=== PATIENT | female | born 1975 | race Caucasian/White ===

== ENCOUNTER 2019-10-23 11:26 | Emergency (ER) | payer OTHER ==
[~2019-10-23] VITALS: Ht 167.7 cm; Wt 100.0 kg
--- NOTE | 2019-10-23 11:43 | ED General ---
General Stated Complaint: BP 200/150 Source of Information: Patient History of Present Illness Date Seen by Provider: Oct 23, 2019 Time Seen by Provider: 11:30 Initial Comments 44-year-old female presents with sudden onset of feeling shaky while at work and then her blood pressure checked and it was very high. Presents to the ER with same complaints, her hand shaking uncontrollably and very anxious. Concerned she may be having a heart attack or stroke. Allergies and Home Medications Allergies Coded Allergies: acyclovir (Unverified Adverse Reaction, Mild, cold sweats, 10/23/19) Patient Home Medication List Home Medication List Reviewed: Yes Review of Systems Review of Systems Constitutional: No dizziness, No fever, No malaise, No weakness Respiratory: No cough, No short of breath Cardiovascular: No chest pain, No edema; palpitations; No syncope Gastrointestinal: No abdominal pain, No constipation, No vomiting Musculoskeletal: No back pain, No joint pain Skin: No change in color, No lesions, No rash Psychiatric/Neurological: Anxiety; Denies Emotional Problems, Denies Headache, Denies Numbness, Denies Paresthesia, Denies Pre-Existing Deficit, Denies Seizure; Tremors (of hands) Past Xzlialy-Yeunug-Vhlqjw Hx Past Med/Social Hx: Reviewed Nursing Past Med/Soc Hx Patient Social History Recent Foreign Travel: No Contact w/Someone Who Travel: No Physical Exam Vital Signs Vital Signs - First Documented 10/23/19 11:30 Temp 36.4 Pulse 120 Resp 22 B/P (MAP) 185/113 (137) Pulse Ox 96 O2 Delivery Room Air Capillary Refill : Height, Weight, BMI Height: '" Weight: lbs. oz. kg; BMI Method: General Appearance: Anxious (trembling and shaking of b/l hands. Stops w volitional movement.) HEENT: PERRL/EOMI, Normal ENT Inspection Neck: Non Tender, Supple Respiratory: Chest Non Tender, Lungs Clear Cardiovascular: No Edema, No Gallop, No JVD, No Murmur, Normal Peripheral Pulses, Tachycardia (sinus tach.....130's on arrival) Gastrointestinal: Non Tender, Soft; No Distended, No Guarding, No Tenderness Back: Normal Inspection, No CVA Tenderness Extremity: Normal Capillary Refill, Normal Inspection, Non Tender, No Calf Tenderness Neurologic/Psychiatric: Alert, Oriented x3, No Motor/Sensory Deficits, Other (very anxious) Progress/Results/Core Measures Suspected Sepsis SIRS Temperature: Pulse: Respiratory Rate: Laboratory Tests 10/23/19 11:40: White Blood Count 9.4 Blood Pressure / Mean: Laboratory Tests 10/23/19 11:40: Creatinine 0.91, Platelet Count 343, Total Bilirubin 0.3 Results/Orders Lab Results Laboratory Tests Test 10/23/19 11:40 10/23/19 12:14 Range/Units White Blood Count 9.4 4.3-11.0 10^3/uL Red Blood Count 5.05 4.35-5.85 10^6/uL Hemoglobin 15.2 11.5-16.0 G/DL Hematocrit 44 35-52 % Mean Corpuscular Volume 87 80-99 FL Mean Corpuscular Hemoglobin 30 25-34 PG Mean Corpuscular Hemoglobin Concent 35 32-36 G/DL Red Cell Distribution Width 13.5 10.0-14.5 % Platelet Count 343 130-400 10^3/uL Mean Platelet Volume 9.6 7.4-10.4 FL Neutrophils (%) (Auto) 62 42-75 % Lymphocytes (%) (Auto) 31 12-44 % Monocytes (%) (Auto) 7 0-12 % Eosinophils (%) (Auto) 0 0-10 % Basophils (%) (Auto) 0 0-10 % Neutrophils # (Auto) 5.8 1.8-7.8 X 10^3 Lymphocytes # (Auto) 2.9 1.0-4.0 X 10^3 Monocytes # (Auto) 0.7 0.0-1.0 X 10^3 Eosinophils # (Auto) 0.0 0.0-0.3 10^3/uL Basophils # (Auto) 0.0 0.0-0.1 10^3/uL Sodium Level 139 135-145 MMOL/L Potassium Level 3.9 3.6-5.0 MMOL/L Chloride Level 102 98-107 MMOL/L Carbon Dioxide Level 23 21-32 MMOL/L Anion Gap 14 5-14 MMOL/L Blood Urea Nitrogen 13 7-18 MG/DL Creatinine 0.91 0.60-1.30 MG/DL Estimat Glomerular Filtration Rate > 60 BUN/Creatinine Ratio 14 Glucose Level 121 H 70-105 MG/DL Calcium Level 9.2 8.5-10.1 MG/DL Corrected Calcium 8.9 8.5-10.1 MG/DL Total Bilirubin 0.3 0.1-1.0 MG/DL Aspartate Amino Transf (AST/SGOT) 22 5-34 U/L Alanine Aminotransferase (ALT/SGPT) 26 0-55 U/L Alkaline Phosphatase 97 40-136 U/L Total Protein 7.4 6.4-8.2 GM/DL Albumin 4.4 3.2-4.5 GM/DL Urine Color DARK YELLOW Urine Clarity CLOUDY H Urine pH 6.0 5-9 Urine Specific [place] 1.025 H 1.016-1.022 Urine Protein NEGATIVE NEGATIVE Urine Glucose (UA) NEGATIVE NEGATIVE Urine Ketones NEGATIVE NEGATIVE Urine Nitrite NEGATIVE NEGATIVE Urine Bilirubin NEGATIVE NEGATIVE Urine Urobilinogen 0.2 < = 1.0 MG/DL Urine Leukocyte Esterase NEGATIVE NEGATIVE Urine RBC (Auto) NEGATIVE NEGATIVE Urine RBC NONE /HPF Urine WBC 2-5 /HPF Urine Squamous Epithelial Cells 25-50 H /HPF Urine Crystals NONE /LPF Urine Bacteria NEGATIVE /HPF Urine Casts NONE /LPF Urine Mucus MODERATE H /LPF Urine Culture Indicated NO My Orders Orders - EDUINSTELSY GOODMAN DO Ed Iv/Invasive Line Start (10/23/19 11:33) Chest 1 View Ap/Pa Only (10/23/19 11:33) Ekg Tracing (10/23/19 11:33) Cbc With Automated Diff (10/23/19 11:33) Comprehensive Metabolic Panel (10/23/19 11:33) Urinalysis (10/23/19 11:33) Metoprolol Tartrate Injection (Lopressor (10/23/19 11:45) Ns Iv 1000 Ml (Sodium Chloride 0.9%) (10/23/19 11:45) Medications Given in ED Current Medications Medications Dose Ordered Sig/Court Route Start Time Stop Time Status Last Admin Dose Admin Metoprolol Tartrate 5 mg ONCE ONCE IV 10/23/19 11:45 10/23/19 11:46 DC 10/23/19 11:50 5 MG Vital Signs/I&O 10/23/19 11:30 Temp 36.4 Pulse 120 Resp 22 B/P (MAP) 185/113 (137) Pulse Ox 96 O2 Delivery Room Air Capillary Refill : ECG Initial ECG Impression Time: 11:33 Initial ECG Rhythm: S.Tach (103) Initial ECG Intervals: Normal Initial ECG Impression: Normal Initial ECG Comparisson: No Previous ECG Available Diagnostic Imaging Diagonstic Imaging: Xray Comments Date of Exam:10/23/19 CHEST 1 VIEW AP/PA ONLY INDICATION: Elevated blood pressure. Time of exam 11:41 AM No prior studies are available for comparison. The heart size is normal. The pulmonary vascularity is unremarkable. The lungs are clear. No infiltrate, effusion or pneumothorax is detected. Impression: No acute cardiopulmonary process is detected. Dictated on workstation # [id number] Dict: 10/23/19 1154 Trans: 10/23/19 1156 [facility] [id number] Interpreted by: GASPER ROBLES MD Electronically signed by: Departure Impression Primary Impression: Anxiety Additional Impression: Palpitations Disposition: 01 HOME, SELF-CARE Condition: Improved Departure-Patient Inst. Decision time for Depature: 12:55 Referrals: [facility]/ (PCP) Primary Care Physician JESU BARCENAS APRN (Family) Primary Care Physician Patient Instructions: Anxiety, Adult (DC), Palpitations (DC) Add. Discharge Instructions: See your Primary Care Provider in 1 week. Work/School Note: Work Release Form Date Seen in the Emergency Department: Oct 23, 2019 Return to Work: Oct 24, 2019 ELSY MARMOLEJO DO Oct 23, 2019 11:43
[2019-10-23] MEDS ORDERED: NS IV 1000 ML 1,000 ML IV SCH (11:45)
[2019-10-23] MEDS ORDERED: meTOprolol 5 MG/5 ML (LOPRESSOR) VIAL IV ONE (11:45)
[2019-10-23] MEDS ORDERED: Lasix (11:49)
[2019-10-23] MEDS ORDERED: VENL-48 (11:49)
[2019-10-23] MEDS ORDERED: Gabapentin (11:49)
--- NOTE | 2019-10-23 11:56 | Diagnostic Imaging Report ---
INDICATION: Elevated blood pressure. Time of exam 11:41 AM No prior studies are available for comparison. The heart size is normal. The pulmonary vascularity is unremarkable. The lungs are clear. No infiltrate, effusion or pneumothorax is detected. Impression: No acute cardiopulmonary process is detected. Dictated by: Dictated on workstation # [id number]
--- NOTE | 2019-10-23 12:00 | NUR ---
Pt has become more relaxed and calm, improved vitals and sense of well being.
[2019-10-23 12:01] LABS: BASOPHILS % (AUTO) 0 % (0-10); EOSINOPHILS % (AUTO) 0 % (0-10); HEMATOCRIT 44 % (35-52); HEMOGLOBIN 15.2 G/DL (11.5-16.0); LYMPHOCYTES # (AUTO) 2.9 X 10^3 (1.0-4.0); LYMPHOCYTES % (AUTO) 31 % (12-44); MEAN CORPUSCULAR HEMOGLOBIN 30 PG (25-34); MEAN CORPUSCULAR HGB CONC 35 G/DL (32-36); MEAN CORPUSCULAR VOLUME 87 FL (80-99); MEAN PLATELET VOLUME 9.6 FL (7.4-10.4); MONOCYTES # (AUTO) 0.7 X 10^3 (0.0-1.0); MONOCYTES % (AUTO) 7 % (0-12); NEUTROPHILS # (AUTO) 5.8 X 10^3 (1.8-7.8); NEUTROPHILS % (AUTO) 62 % (42-75); PLATELET COUNT 343 10^3/uL (130-400); RED CELL DISTRIBUTION WIDTH 13.5 % (10.0-14.5); WHITE BLOOD COUNT 9.4 10^3/uL (4.3-11.0)
[2019-10-23 12:23] LABS: CARBON DIOXIDE 23 MMOL/L (21-32); CHLORIDE 102 MMOL/L (98-107); POTASSIUM 3.9 MMOL/L (3.6-5.0); SODIUM 139 MMOL/L (135-145)
[2019-10-23 12:24] LABS: ALANINE AMINOTRANSFERASE 26 U/L (0-55); ALBUMIN 4.4 GM/DL (3.2-4.5); ALKALINE PHOSPHATASE 97 U/L (40-136); BILIRUBIN,TOTAL 0.3 MG/DL (0.1-1.0); BUN/CREATININE RATIO 14; CALCIUM 9.2 MG/DL (8.5-10.1); CREATININE SERUM 0.91 MG/DL (0.60-1.30); GFR ESTIMATED > 60; GLUCOSE 121 MG/DL (70-105); TOTAL PROTEIN 7.4 GM/DL (6.4-8.2)
[2019-10-23 12:43] LABS: CLARITY,URINE CLOUDY; COLOR,URINE DARK YELLOW; GLUCOSE, URINE (UA) NEGATIVE (NEGATIVE); KETONES,URINE NEGATIVE (NEGATIVE); PROTEIN,URINE NEGATIVE (NEGATIVE)
[2019-10-23 12:44] LABS: BACTERIA,URINE NEGATIVE /HPF; BILIRUBIN,URINE NEGATIVE (NEGATIVE); LEUKOCYTE ESTERASE ,URINE NEGATIVE (NEGATIVE); NITRITE,URINE NEGATIVE (NEGATIVE); SQUAMOUS EPITHELIAL CELL,UR 25-50 /HPF
--- NOTE | 2019-10-23 13:00 | NUR ---
Pt being readied for depart. Pt has no questions for staff.
[2019-10-23 13:12] VITALS: BP 131/81
--- NOTE | 2019-10-23 13:12 | NUR ---
Pt being departed at this time, VSS, and IV dc'd.
== END 2019-10-23 13:12 | disposition home or self-care (01) ==
LOC: ER FS 11:28
DX: F41.9 Anxiety disorder, unspecified (principal); R00.2 Palpitations; Z88.8 Allergy status to other drugs, medicaments and biological substances
CPT/HCPCS: 36415; 71045; 80053; 81000; 85025; 93005

== ENCOUNTER 2022-08-05 10:56 | Emergency (ER) | payer BC, OTHER ==
[~2022-08-05] VITALS: Ht 167.7 cm; Wt 80.9 kg
[~2022-08-05 10:56] MED LIST: Gabapentin; Lasix; VENL-48
[2022-08-05 11:11] LABS: BASOPHILS % (AUTO) 0 % (0-10); EOSINOPHILS # (AUTO) 0.2 10^3/uL (0.0-0.3); EOSINOPHILS % (AUTO) 2 % (0-10); HEMATOCRIT 44 % (35-52); HEMOGLOBIN 14.6 g/dL (11.5-16.0); LYMPHOCYTES # (AUTO) 2.1 10^3/uL (1.0-4.0); LYMPHOCYTES % (AUTO) 26 % (12-44); MEAN CORPUSCULAR HEMOGLOBIN 30 pg (25-34); MEAN CORPUSCULAR HGB CONC 33 g/dL (32-36); MEAN CORPUSCULAR VOLUME 91 fL (80-99); MEAN PLATELET VOLUME 10.5 fL (9.0-12.2); MONOCYTES # (AUTO) 0.4 10^3/uL (0.0-1.0); MONOCYTES % (AUTO) 5 % (0-12); NEUTROPHILS # (AUTO) 5.4 10^3/uL (1.8-7.8); NEUTROPHILS % (AUTO) 67 % (42-75); PLATELET COUNT 280 10^3/uL (130-400); WHITE BLOOD COUNT 8.1 10^3/uL (4.3-11.0)
--- NOTE | 2022-08-05 11:22 | ED Chest Pain ---
General Chief Complaint: Cardiac/General Problems Stated Complaint: ABN EKG Source: patient, RN/MD (SR. DIRECTOR Mary Mark from [facility] urgent care called to give report on the patient's presentation and symptoms and concern that she needed labs to help rule out ACS or MD) History of Present Illness Date Seen by Provider: Aug 05, 2022 Time Seen by Provider: 10:59 Initial Comments 47-year-old female presenting with complaints of severe chest pain and pressure that had radiated into her back and up into her jaw bilaterally. She states that this started at 7 AM this morning and was constant for over an hour. It was severe enough that she was crying from it. She had trouble getting dressed because of the pain but was able to get dressed and drove herself to the urgent care. She states that since she had been on an increased dose of Mounjaro to 10 mg in April she felt that she had been having severe heartburn symptoms. She was contributing all of her symptoms to the Mounjaro and had stopped taking it. She states that its been 17 days since her last shot. She has been taking omeprazole as well as famotidine and Tums and [id number] medicines for heartburn and acid. She states that none of that was helping her and she felt like her symptoms were getting worse. She had not followed up with the clinic about the symptoms. She had gone to [facility] in May for chest pain symptoms. At that time she states that all the blood work and EKG had looked okay and they told her she had not had a heart attack or stroke. She does have a family history of both of her parents dying in their 50s from having coronary artery disease. She otherwise has a history of anxiety and depression. She used to have low back pain with neuropathy and was taking gabapentin but since losing weight with the Mounjaro shots that she started in December 2021 she has been able to stop the gabapentin. She currently is only taking Effexor and some multivitamins for weight loss. This morning her pain resolved after taking a GI cocktail at the urgent care. They had not administered any aspirin. She had an electrocardiogram done at urgent care that they had felt had some ST depression and felt it was changed from her prior tracing that they had. They had referred her to the emergency department to have blood work and further testing done beyond what they had capabilities of at the urgent care. On arrival to the emergency department she continues to be pain-free and states that she is anxious to get the testing done because she wanted to be out sunbathing this morning. She does state that she has had similar pains in the past month but they had not been this severe and none of the prior episodes had gone into her jaw or back. Timing/Duration: 4-6 hours, gone now Severity/Quality: severe, pressure Location: central Radiation: jaw, back Activities at Onset: none Prior CP/Workup: no prior cardiac workup Modifying Factors: improves with antacids; worse with other (Anxiety made it worse.) ASA po PLATING FOREMAN: No NTG SL PLATING FOREMAN: No Associated Symptoms: No abdominal pain, No back pain; diaphoresis (This morning while having the chest pain); No dizziness, No edema, No fatigue, No fever/chills, No headache; heartburn; No nausea/vomiting, No rash, No shortness of breath, No swelling/lump in chest, No syncope, No weakness Allergies and Home Medications Allergies Coded Allergies: acyclovir (Unverified Adverse Reaction, Mild, cold sweats, 10/23/19) Patient Home Medication List Home Medication List Reviewed: Yes Venlafaxine HCl (Venlafaxine HCl ER) 37.5 Mg Cap.er.24h, (Reported) Entered as Reported by: JOSE JOSÉ on 10/23/19 1149 [Gabapentin] , (Reported) Entered as Reported by: JOSE JOSÉ on 10/23/19 1149 [Lasix] , (Reported) Entered as Reported by: JOSE JOSÉ on 10/23/19 1149 Review of Systems Review of Systems Constitutional: see HPI; No chills; diaphoresis; No fever EENTM: See HPI Respiratory: Denies Cough, Denies Shortness of Air Cardiovascular: See HPI, Chest Pain Gastrointestinal: See HPI Genitourinary: No Symptoms Reported Musculoskeletal: no symptoms reported Skin: no symptoms reported Psychiatric/Neurological: Anxiety Endocrine: No Symptoms Reported Hematologic/Lymphatic: Denies Blood Clots Past Awaxkaq-Hadygg-Zdwtag Hx Patient Social History Tobacco Use?: Yes Tobacco type used: Cigarettes Smoking Status: Current Everyday Smoker Substance use?: No Seasonal Allergies Seasonal Allergies: No Past Medical History Surgeries: Yes (arthroscopy R ankle) Adenoidectomy, Section, Gallbladder, Hysterectomy, Orthopedic, Tonsillectomy Respiratory: No Cardiac: Yes (Fluid retention) Chronic Edema/Swelling, Hypertension Genitourinary: No Gastrointestinal: No Musculoskeletal: Yes (chronic pain in left lateral thigh) Endocrine: No HEENT: No Cancer: No Psychosocial: Yes Anxiety, Depression Integumentary: No Blood Disorders: No Physical Exam Vital Signs Vital Signs - First Documented 08/05/22 11:00 Temp 35.5 Pulse 85 Resp 16 B/P (MAP) 151/104 (120) Pulse Ox 100 O2 Delivery Room Air Capillary Refill : Height, Weight, BMI Height: '" Weight: lbs. oz. kg; 35.00 BMI Method: General Appearance: WD/WN, Anxious HEENT: PERRL/EOMI, Pharynx Normal Neck: Full Range of Motion, Normal Inspection, Non Tender, Supple Respiratory: Chest Non Tender, Lungs Clear, Normal Breath Sounds, No Accessory Muscle Use, No Respiratory Distress Cardiovascular: Regular Rate, Rhythm, No Edema, Normal Peripheral Pulses Gastrointestinal: Normal Bowel Sounds, No Pulsatile Mass, Non Tender, Soft Rectal: Deferred Extremity: Normal Capillary Refill, Normal Inspection, Non Tender, No Calf Tenderness, No Pedal Edema Neurologic/Psychiatric: Alert, Oriented x3 Skin: Normal Color, Warm/Dry Critical Care Note Critical Care Total Time (minutes) 45 minutes Progress I spent at least 45 minutes of critical care time with the patient. Time excludes separately billable procedures. Time was spent obtaining history from patient and reviewing external medical records from [facility], ordering tests and reviewing results, ordering interventions and reviewing response, discussion with consultants, discussion with patient and her daughter over FaceTime phone call, documentation in the chart. Patient was at risk of cardiovascular compromise and arrhythmia or with having findings of non STEMI. She required my immediate care and management to stabilize patient and monitor for changes in condition as well as arrange transfer to a facility with Cardiology. Progress/Results/Core Measures Results/Orders Lab Results Laboratory Tests Test 08/05/22 11:05 Range/Units White Blood Count 8.1 4.3-11.0 10^3/uL Red Blood Count 4.80 3.80-5.11 10^6/uL Hemoglobin 14.6 11.5-16.0 g/dL Hematocrit 44 35-52 % Mean Corpuscular Volume 91 80-99 fL Mean Corpuscular Hemoglobin 30 25-34 pg Mean Corpuscular Hemoglobin Concent 33 32-36 g/dL Red Cell Distribution Width 13.5 10.0-14.5 % Platelet Count 280 130-400 10^3/uL Mean Platelet Volume 10.5 9.0-12.2 fL Immature Granulocyte % (Auto) 0 % Neutrophils (%) (Auto) 67 42-75 % Lymphocytes (%) (Auto) 26 12-44 % Monocytes (%) (Auto) 5 0-12 % Eosinophils (%) (Auto) 2 0-10 % Basophils (%) (Auto) 0 0-10 % Neutrophils # (Auto) 5.4 1.8-7.8 10^3/uL Lymphocytes # (Auto) 2.1 1.0-4.0 10^3/uL Monocytes # (Auto) 0.4 0.0-1.0 10^3/uL Eosinophils # (Auto) 0.2 0.0-0.3 10^3/uL Basophils # (Auto) 0.0 0.0-0.1 10^3/uL Immature Granulocyte # (Auto) 0.0 0.0-0.1 10^3/uL Prothrombin Time 12.2 12.2-14.7 SEC INR Comment 0.9 0.8-1.4 Activated Partial Thromboplast Time 32 24-35 SEC Sodium Level 144 135-145 MMOL/L Potassium Level 4.3 3.6-5.0 MMOL/L Chloride Level 109 H 98-107 MMOL/L Carbon Dioxide Level 24 21-32 MMOL/L Anion Gap 11 5-14 MMOL/L Blood Urea Nitrogen 13 7-18 MG/DL Creatinine 0.91 0.60-1.30 MG/DL Estimat Glomerular Filtration Rate 78 BUN/Creatinine Ratio 14 Glucose Level 94 70-105 MG/DL Calcium Level 9.4 8.5-10.1 MG/DL Corrected Calcium 9.1 8.5-10.1 MG/DL Magnesium Level 2.4 1.6-2.4 MG/DL Total Bilirubin 0.3 0.1-1.0 MG/DL Aspartate Amino Transf (AST/SGOT) 22 5-34 U/L Alanine Aminotransferase (ALT/SGPT) 12 0-55 U/L Alkaline Phosphatase 78 40-136 U/L Troponin I 1.66 *H <0.30 NG/ML Pro-B-Type Natriuretic Peptide 1334.0 H <125.0 PG/ML Total Protein 6.9 6.4-8.2 GM/DL Albumin 4.4 3.2-4.5 GM/DL Lipase 23 8-78 U/L My Orders Orders - JESUS TOUSSAINT MD Cbc With Automated Diff (08/05/22 11:00) Magnesium (08/05/22 11:00) Ekg Tracing (08/05/22 11:00) Comprehensive Metabolic Panel (08/05/22 11:00) Protime With Inr (08/05/22 11:00) Partial Thromboplastin Time (08/05/22 11:00) O2 (08/05/22 11:00) Monitor-Rhythm Ecg Trace Only (08/05/22 11:00) Ed Iv/Invasive Line Start (08/05/22 11:00) Lipase (08/05/22 11:00) Troponin I Fs (08/05/22 11:00) Probnp Fs (08/05/22 11:00) Aspirin Chewable Tablet (Baby Aspirin Ch (08/05/22 11:48) Alprazolam Tablet (Xanax Tablet) (08/05/22 11:48) Chest 1 View Ap/Pa Only (08/05/22 11:48) Vital Signs/I&O 08/05/22 11:00 Temp 35.5 Pulse 85 Resp 16 B/P (MAP) 151/104 (120) Pulse Ox 100 O2 Delivery Room Air Progress Progress Note #1: Progress Note Potential diagnosis of acute coronary syndrome, myocardial infarction, STEMI, non-STEMI, esophageal spasms, GERD with esophagitis, aortic dissection. Obtain electrocardiogram on patient presentation. Placed on cardiac simplex printer installer and my initial interpretation her heart rate was in the 90s and sinus rhythm without ectopy or ST elevation. Her initial blood pressure was 151/104 but she was talking and moving her arm at that time. She denies having any chest pain currently. Obtain peripheral IV access and send labs for complete blood count, comprehensive metabolic profile, coagulation factors, troponin, proBNP, magnesium. 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 Consider chest x- ray if she has abnormal lab findings or if her pain and symptoms recur. Progress Note #2: Time: 11:37 Progress Note Lab called to state that her troponin was elevated to 1.66. Our cutoff is less than 0.3. Her complete blood count did not show any elevated white blood cell count, anemia, low platelets. Her comprehensive metabolic profile otherwise did not show any acute electrolyte abnormality as her sodium, potassium, renal function, magnesium, liver enzymes were all normal and not elevated. Her coagula tion factors also were not out of range or indicating a coagulopathy. When updating the patient she became anxious and heart rate shot up from 89 to 143. She got her daughter on the phone with face time and that helped calm her down. She requested to go to [facility] or [facility] in [facility] and did not want to go to [facility] for admit. We will add on aspirin 324 mg p.o. x1 here in the ED. Due to her anxiety we will also give a dose of Xanax 0.25 mg p.o. x1. Add on a 1 view chest x-ray since she was having a non- STEMI. Will check with facilities about possible transfer. Progress Note #3: Progress Note 1156 I called the [facility] transfer center and spoke with ARMAND Rutherford. She connected me with Dr. Hany Greene the transfer physician. I reviewed the patient's presentation and case with him and that she did not have any acute ST elevation on her electrocardiogram and her pain resolved after a GI cocktail prior to coming to the emergency department. However with her labs she did have an elevated troponin up to 1.66 with her cutoff at less than 0.3. She continues to have no pain here but with the elevated troponin she would be had a non-STEMI classification. She was given 324 mg of aspirin p.o. and as she was becoming anxious I did also give her 0.25 mg of alprazolam. He was unsure about bed status and stated that they would check to see if they had any beds in any of the [facility] facilities and call us back. 1202 on my personal interpretation and review her 1 view chest x-ray did not demonstrate any acute process. 1217 [facility] called back stating that they did not have any beds available in any of the [facility] facilities. 1221 I called the [facility] access center to check and see if they had any bed availability at [facility] or [facility] as they would be the next closest facilities. I spoke with ARMAND Raymond at that transfer center. He connected me with Dr. De Los Santos in the [facility] emergency department. I spoke with Dr. De Los Santos in the emergency department at [facility]. I reviewed the patient's presentation and briefly discussed her past medical history with heartburn symptoms since increased dose of Mounjaro and April. She had different symptoms this morning with severe chest pain going into her back and jaw as well as sweating that occurred at 7 AM and lasted for well over an hour. Pain finally resolved after getting a GI cocktail at urgent care. She has had no further pain since then. Her labs and all appeared stable and normal other than she had elevated troponin up to 1.66 with her usual cutoff less than 0.3. She had no ST elevation on her electrocardiogram here in the ED. Her vital signs have been stable otherwise. Patient requested to come to [facility]. At 1228, Dr. De Los Santos accepted the patient for transfer and stated that the patient would be an ED hold at this point until a bed opened up upstairs. I did let her know that the patient had received aspirin 324 mg po but had not been given any Plavix or heparin or Lovenox or any other anticoagulants. She has also received no nitroglycerin as she has not had any pain here. Blood pressure 141/98 with heart rate 90s sinus rhythm, O2 saturation 100% on room air. Con tinues to be pain free. Progress Note #4: Time: 13:19 Progress Note Patient remained stable and chest pain-free. She left the emergency department with EMS for transport to [facility] at 1319 Initial ECG Impression Date: Aug 05, 2022 Initial ECG Impression Time: 11:03 Initial ECG Rate: 93 Initial ECG Rhythm: Normal Sinus Initial ECG Comparisson: Unchanged (10/23/2019) Comment On my personal interpretation and review the electrocardiogram shows a normal sinus rhythm with sinus arrhythmia and a heart rate of 93 bpm. AR interval [address] elevation. QT interval 364 ms with a QTc interval 415 ms. Overall appears similar to prior tracing in the system from October 23, 2019. Diagnostic Imaging Diagonstic Imaging: Xray Plain Films/CT/US/NM/MRI: chest Comments [facility] [place], [place] NAME: TACOS BALDERASDIAN Melton [facility] REC#: [id number] PT STATUS: REG ER : 1975 PHYSICIAN: JESUS TOUSSAINT MD ADMIT DATE: 08/05/22/ER FS Draft Date of Exam:08/05/22 CHEST 1 VIEW AP/PA ONLY Indication: Chest pain. Time of Exam: 11:49 AM Correlation is made with prior chest from 10/23/2019. Heart size is normal. Lungs are clear of acute infiltrates. No effusion or pneumothorax is detected. IMPRESSION: No acute cardiopulmonary process is detected. Dictated on workstation # [id number] Dict: 08/05/22 1159 Trans: 08/05/22 1207 [facility] [id number] Interpreted by: GASPER ROBLES MD Electronically signed by: Reviewed: Reviewed by Me (I reviewed the radiologist report at 1225) Departure Impression Primary Impression: Non-STEMI (non-ST elevated myocardial infarction) Disposition: XFER [facility] Condition: Critical Transfer Transfer Reason: Patient preference Time Spoke to Accepting Phy: 12:28 Transfer Progress Notes I spoke with Dr. De Los Santos in the emergency department at [facility]. I reviewed the patient's presentation and briefly discussed her past medical history with heartburn symptoms since increased dose of Mounjaro and April. She had different symptoms this morning with severe chest pain going into her back and jaw as well as sweating that occurred at 7 AM and lasted for well over an hour. Pain finally resolved after getting a GI cocktail at urgent care. She has had no further pain since then. Her labs and all appeared stable and normal other than she had elevated troponin up to 1.66 with her usual cutoff less than 0.3. She had no ST elevation on her electrocardiogram here in the ED. Her vital signs have been stable otherwise. Patient requested to come to [facility]. Dr. De Los Santos accepted and stated that the patient would be an ED hold at this point until a bed opened up upstairs. I did let her know that the patient had received aspirin but had not been given any Plavix or heparin or Lovenox or any other anticoagulants. She is also received no nitroglycerin as she has not had any pain here. Transfer Facility: [facility] Method of Transfer: EMS Departure-Patient Inst. Referrals: ROYA ZHAO MD (PCP) Primary Care Physician JESUS TOUSSAINT MD Aug 05, 2022 11:22
[2022-08-05 11:24] LABS: INR 0.9 (0.8-1.4); PROTHROMBIN TIME PATIENT 12.2 SEC (12.2-14.7)
[2022-08-05 11:36] LABS: ALBUMIN 4.4 GM/DL (3.2-4.5); BILIRUBIN,TOTAL 0.3 MG/DL (0.1-1.0); CALCIUM 9.4 MG/DL (8.5-10.1); CREATININE SERUM 0.91 MG/DL (0.60-1.30); MAGNESIUM 2.4 MG/DL (1.6-2.4); POTASSIUM 4.3 MMOL/L (3.6-5.0); TOTAL PROTEIN 6.9 GM/DL (6.4-8.2)
[2022-08-05] MEDS ORDERED: ASPIRIN 81 MG CHEW (CHILDREN'S ASA) PO STA (11:48)
[2022-08-05] MEDS ORDERED: ALPRAZolam 0.25 MG (XANAX) TAB PO STA (11:48)
--- NOTE | 2022-08-05 12:08 | Diagnostic Imaging Report ---
Indication: Chest pain. Time of Exam: 11:49 AM Correlation is made with prior chest from 10/23/2019. Heart size is normal. Lungs are clear of acute infiltrates. No effusion or pneumothorax is detected. IMPRESSION: No acute cardiopulmonary process is detected. Dictated by: Dictated on workstation # [id number]
[2022-08-05 13:26] VITALS: BP 126/87
== END 2022-08-05 13:25 | disposition short-term general hospital (02) ==
LOC: EDUNIT# 10:56 → ER FS 10:58
DX: I21.4 Non-ST elevation (NSTEMI) myocardial infarction (principal); F41.9 Anxiety disorder, unspecified; F17.210 Nicotine dependence, cigarettes, uncomplicated
CPT/HCPCS: 36415; 71045; 80053; 83690; 83735; 83880; 84484; 85025; 85610; 85730; 93005; 93041